=== PATIENT | female | born 1995 | race African-American/Black ===

== ENCOUNTER 2017-07-17 22:34 | Emergency (ER) | payer MEDICAID ==
[~2017-07-17] VITALS: Ht 157.5 cm; Wt 63.5 kg
[2017-07-17] MEDS ORDERED: ALBUTEROL2.5 MG/3 M INH (22:43)
[2017-07-17 22:54] VITALS: BP 112/71
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
[2017-07-18] MEDS ORDERED: IBUPROFEN600 MG ORAL (00:21)
[2017-07-18] MEDS ORDERED: AUGMENTIN 875-1 EAC1 ORAL (00:21)
[2017-07-18] MEDS ORDERED: FLUCONAZOLE100 MG ORAL (00:30)
[2017-07-18] MEDS ORDERED: CYCLOBENZAPRINE10 MG ORAL (00:39)
[2017-07-18 00:40] VITALS: BP 115/69
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
--- NOTE | 2017-07-18 17:28 | Diagnostic Imaging Report ---
Indication: PAIN Technique: 3 views of the cervical spine Comparison: none Findings: There is straightening of the normal cervical lordosis. Otherwise normal bony alignment. No prevertebral soft tissue swelling. No acute fractures. No dislocations. Vertebral body heights are preserved. Disc spaces are preserved. Impression: No acute process This agrees with the preliminary interpretation provided by the emergency room physician
== END 2017-07-18 00:40 | disposition home or self-care (01) ==
LOC: EMR 22:55
DX: S16.1XXA Strain of muscle, fascia and tendon at neck level, initial encounter (principal); J32.3 Chronic sphenoidal sinusitis; H57.12 Ocular pain, left eye; V49.9XXA Car occupant (driver) (passenger) injured in unspecified traffic accident, initial encounter; Y93.9 Activity, unspecified; Y92.410 Unspecified street and highway as the place of occurrence of the external cause
CPT/HCPCS: 70450; 72040; 81025; 99284